=== PATIENT | male | born 1985 | race American Indian/Alaskan Native ===

== ENCOUNTER 2019-04-12 08:49 | Emergency (ER) | payer SELFPAY ==
[2019-04-12 09:31] LABS: Basophils % (Auto) 0.4 % (0.0-1.8); Hematocrit 44.5 % (35.5-45.6); Hemoglobin 15.1 gm/dl (11.8-15.2); Lymphocytes # (Auto) 1.6 K/mm3 (1.2-5.4); Mean Corpuscular HGB Conc 34 % (32-34); Mean Corpuscular Volume 93 fl (84-94); Monocytes # (Auto) 0.3 K/mm3 (0.0-0.8); Monocytes % (Auto) 3.8 % (0.0-7.3); Platelet Count 438 K/mm3 (140-440); Red Blood Count 4.81 M/mm3 (3.65-5.03); Red Cell Distribution Width 13.1 % (13.2-15.2)
[2019-04-12] MEDS ORDERED: FAMOTIDINE 20 MG/2 ML INJ IV ONE (09:31)
[2019-04-12] MEDS ORDERED: SODIUM CHLORIDE 0.9% 1000 ML 1,000 ML IV ONE (09:31)
[2019-04-12] MEDS ORDERED: ONDANSETRON 4 MG/2 ML INJ IV ONE (09:31)
[2019-04-12] MEDS ORDERED: DICYCLOMINE 20 MG/2 ML INJ IM ONE (09:31)
[2019-04-12 09:53] LABS: Alanine Aminotransferase 39 units/L (7-56); Albumin 4.7 g/dL (3.9-5); BUN/Creatinine Ratio 11; Blood Urea Nitrogen 9 mg/dL (9-20); Calcium 9.4 mg/dL (8.4-10.2); Hemolysis Index 11
--- NOTE | 2019-04-12 11:32 | Cat Scan Report ---
CT ABDOMEN AND PELVIS WITH CONTRAST HISTORY: Nausea, vomiting, abdominal pain. Recent cholecystectomy. COMPARISON: None TECHNIQUE: Routine abdominal and pelvic CT exam performed with IV contrast. The patient received 100 mL of IV Omnipaque 300. All CT scans at this location are performed using CT dose reduction for ALARA by means of automated exposure control. FINDINGS: CT ABDOMEN: Lung Bases: No significant abnormality. Liver: No significant abnormality. Biliary: Gallbladder is surgically absent. There is no fluid collection in the gallbladder fossa. Spleen: No significant abnormality. Unenlarged. Pancreas: No significant abnormality. Adrenals: No significant abnormality. Kidneys: No significant abnormality. Lymphatics: No lymphadenopathy. Vasculature: No significant abnormality. Bowel/Peritoneum: No significant abnormality. No free air. No free fluid. CT PELVIC: : No significant abnormality. Lymphatics: No lymphadenopathy. Osseous Structures: No aggressive appearing osseous lesions. Additional Findings: None IMPRESSION: 1. Post surgical changes from cholecystectomy without fluid collection in the gallbladder fossa or si gnificant ascites. A low-grade bile leak would be better detected with a nuclear medicine hepatobilia ry scan if necessary. Signer Name: Juan Adames MD Signed: 04/12/2019 11:28 AM Workstation Name: [id number]
[2019-04-12] MEDS ORDERED: METOCLOPRAMIDE 10 MG/2 ML INJ IV ONE (11:58)
[2019-04-12 13:28] VITALS: BP 97/45
--- NOTE | 2019-04-12 13:32 | Emergency Department Report ---
ED N/V/D HPI - General Chief complaint: Nausea/Vomiting/Diarrhea Stated complaint: VOMIT BLOOD Time Seen by Provider: 04/12/19 09:26 Source: patient Mode of arrival: Ambulatory Limitations: No Limitations - History of Present Illness Initial comments: Patient is a 33-year-old -[place] male who is complaining of some epigastric discomfort and nausea vomiting for the past 3 days. Patient states he is to have a couple of chunks of what he calls bright red blood as well. Patient's had his gallbladder removed several months ago states the pain is different from his gallbladder pain however he's been unable to stop vomiting. Denies diarrhea fevers or chills. Patient states he was seen at [facility] and was given Phenergan which is not helping. Patient states last have been drawn but deftly no imaging studies. - Related Data Previous Rx's Medication Instructions Recorded Last Taken Type Metoclopramide [Reglan] 10 mg PO TID PRN #12 tab 04/12/19 Unknown Rx Allergies Allergy/AdvReac Type Severity Reaction Status Date / Time No Known Allergies Allergy Unverified 04/12/19 08:52 ED Review of Systems ROS: Stated complaint: VOMIT BLOOD Other details as noted in HPI Comment: All other systems reviewed and negative ED Past Medical Hx - Past Medical History Previous Medical History?: No - Surgical History Hx Cholecystectomy: Yes - Social History Smoking Status: Never Smoker Substance Use Type: Alcohol, Marijuana - Medications Home Medications: Home Medications Medication Instructions Recorded Confirmed Last Taken Type Metoclopramide [Reglan] 10 mg PO TID PRN #12 tab 04/12/19 Unknown Rx ED Physical Exam - General Limitations: No Limitations General appearance: alert, in distress - Head Head exam: Present: atraumatic, normocephalic - Eye Eye exam: Present: normal appearance - ENT ENT exam: Present: mucous membranes moist - Neck Neck exam: Present: normal inspection - Respiratory Respiratory exam: Present: normal lung sounds bilaterally. Absent: respiratory distress, wheezes, rales - Cardiovascular Cardiovascular Exam: Present: regular rate, normal rhythm, normal heart sounds. Absent: systolic murmur, diastolic murmur, rubs, gallop - GI/Abdominal GI/Abdominal exam: Present: soft, normal bowel sounds. Absent: distended, tenderness, guarding - Rectal Rectal exam: Present: deferred - Extremities Exam Extremities exam: Present: normal inspection - Back Exam Back exam: Present: normal inspection - Neurological Exam Neurological exam: Present: alert, oriented X3 - Psychiatric Psychiatric exam: Present: normal affect, normal mood - Skin Skin exam: Present: warm, dry, intact, normal color. Absent: rash ED Course Vital Signs 04/12/19 04/12/19 08:55 09:07 Temperature 97.8 F Pulse Rate 64 Respiratory 20 18 Rate Blood Pressure 134/79 O2 Sat by Pulse 100 Oximetry ED Medical Decision Making - Lab Data Result diagrams: 04/12/19 09:03 04/12/19 09:03 Labs 04/12/19 04/12/19 04/12/19 09:03 09:03 09:33 WBC 7.0 RBC 4.81 Hgb 15.1 Hct 44.5 MCV 93 MCH 31 MCHC 34 RDW 13.1 L Plt Count 438 Lymph % (Auto) 23.0 [place] % (Auto) 3.8 Eos % (Auto) 0.0 Baso % (Auto) 0.4 Lymph # 1.6 [place] # 0.3 Eos # 0.0 Baso # 0.0 Seg Neutrophils % 72.8 H Seg Neutrophils # 5.1 Sodium 141 Potassium 3.5 L Chloride 97.9 L Carbon Dioxide 28 Anion Gap 19 BUN 9 Creatinine 0.8 Estimated GFR > 60 BUN/Creatinine Ratio 11 Glucose 121 H Calcium 9.4 Total Bilirubin 0.60 AST 28 ALT 39 Alkaline Phosphatase 94 Total Protein 7.6 Albumin 4.7 Albumin/Globulin Ratio 1.6 Lipase 57 - Medical Decision Making Patient is a 33-year-old -[place] male who said nausea vomiting for the past 3 days. Patient did recently have surgery and obstruction needs to be rul ed out. CT was done to rule out obstruction and inflammatory changes post surgery. CT was within normal limits. Patient was hydrated given antiemetics the patient eventually stated that he was feeling better and his nausea was improved. Patient did have good results with Reglan and regular will be given as an outpatient. Critical care attestation.: If time is entered above; I have spent that time in minutes in the direct care of this critically ill patient, excluding procedure time. ED Disposition Clinical Impression: Gastritis Disposition: DC-01 TO HOME OR SELFCARE Is pt being admited?: No Does the pt Need Aspirin: No Condition: Stable Instructions: Acute Nausea and Vomiting (ED) Referrals: PRIMARY CARE, [Primary Care Provider] - 3-5 Days Time of Disposition: 13:32
== END 2019-04-12 14:16 | disposition home or self-care (01) ==
LOC: ED 08:49
DX: K29.70 Gastritis, unspecified, without bleeding (principal); F12.10 Cannabis abuse, uncomplicated; Z90.49 Acquired absence of other specified parts of digestive tract
CPT/HCPCS: 36415; 74177; 80053; 83690; 85025; 96361; 96372; 96374; 96375; 99284; J0500; J2405; J2765; J7030; Q9967

== ENCOUNTER 2019-04-16 06:45 | Emergency (ER) | payer OTHER ==
[2019-04-16 06:52] VITALS: BP 126/91
[2019-04-16] MEDS ORDERED: LACTATED RINGERS 1,000 ML IV ONE (08:01)
[2019-04-16] MEDS ORDERED: ONDANSETRON 4 MG/2 ML INJ IV ONE (08:01)
--- NOTE | 2019-04-16 08:05 | Emergency Department Report ---
ED N/V/D HPI - General Chief complaint: Nausea/Vomiting/Diarrhea Stated complaint: VOMITING BLOOD Time Seen by Provider: 04/16/19 08:00 Source: patient Mode of arrival: Ambulatory Limitations: No Limitations - History of Present Illness Initial comments: n/v ongoing x 3 days seen 2 days ago for vomiting blood, but no further blood now no abd pain and no diarrhea no fever no UTI sx complaint: nausea, vomiting -: Gradual, days(s) (3) Description of Vomiting: food contents, bilious Associated Abdominal Pain: No Radiation: none Severity: moderate Pain Scale: 0 Consistency: constant Improves with: none Worsens with: none Associated Symptoms: denies other symptoms, nausea/vomiting - Related Data Previous Rx's Medication Instructions Recorded Last Taken Type Metoclopramide [Reglan] 10 mg PO TID PRN #12 tab 04/12/19 Unknown Rx Promethazine [Phenergan] 25 mg PO Q6HR PRN #12 tab 04/16/19 Unknown Rx Allergies Allergy/AdvReac Type Severity Reaction Status Date / Time No Known Allergies Allergy Unverified 04/12/19 08:52 ED Review of Systems ROS: Stated complaint: VOMITING BLOOD Other details as noted in HPI Comment: All other systems reviewed and negative Gastrointestinal: as per HPI ED Past Medical Hx - Past Medical History Previous Medical History?: No - Surgical History Past Surgical History?: Yes Hx Cholecystectomy: Yes - Social History Smoking Status: Current Every Day Smoker Substance Use Type: Marijuana - Medications Home Medications: Home Medications Medication Instructions Recorded Confirmed Last Taken Type Metoclopramide [Reglan] 10 mg PO TID PRN #12 tab 04/12/19 Unknown Rx Promethazine [Phenergan] 25 mg PO Q6HR PRN #12 tab 04/16/19 Unknown Rx ED Physical Exam - General Limitations: No Limitations General appearance: alert, in no apparent distress - Head Head exam: Present: atraumatic, normocephalic - Eye Eye exam: Present: normal appearance - ENT ENT exam: Present: mucous membranes moist - Neck Neck exam: Present: normal inspection - Respiratory Respiratory exam: Present: normal lung sounds bilaterally. Absent: respiratory distress - Cardiovascular Cardiovascular Exam: Present: normal rhythm, tachycardia. Absent: systolic murmur, diastolic murmur, rubs, gallop - GI/Abdominal GI/Abdominal exam: Present: soft, normal bowel sounds. Absent: distended, tenderness, guarding, rebound - Rectal Rectal exam: Present: deferred - Extremities Exam Extremities exam: Present: normal inspection - Back Exam Back exam: Present: normal inspection - Neurological Exam Neurological exam: Present: alert, oriented X3 - Psychiatric Psychiatric exam: Present: normal affect, normal mood - Skin Skin exam: Present: warm, dry, intact, normal color. Absent: rash ED Course Vital Signs 04/16/19 06:48 Temperature 98.6 F Pulse Rate 110 H Respiratory 20 Rate Blood Pressure 126/91 O2 Sat by Pulse 97 Oximetry ED Medical Decision Making - Lab Data Result diagrams: 04/16/19 Unknown 04/16/19 Unknown - Medical Decision Making ongoing n/v no abd pain or tenderness on exam mildly tachy labs overall stable pt feels much better abd remains soft he is tolerating PO and asking to go home advise PCP fu RTER if worse - Differential Diagnosis gastritis, dehydration, cannabinoid hyperemesis Critical care attestation.: If time is entered above; I have spent that time in minutes in the direct care of this critically ill patient, excluding procedure time. ED Disposition Clinical Impression: Gastritis Qualifiers: Gastritis type: unspecified gastritis Chronicity: acute Gastritis bleeding: without bleeding Qualified Code(s): K29.00 - Acute gastritis without bleeding Disposition: DC-01 TO HOME OR SELFCARE Is pt being admited?: No Condition: Good Instructions: Gastritis (ED) Prescriptions: Promethazine [Phenergan] 25 mg PO Q6HR PRN #12 tab PRN Reason: Nausea Referrals: PRIMARY MD REGINA [Primary Care Provider] - 3-5 Days NORMA STEIN MD [Staff Physician] - 3-5 Days Time of Disposition: 10:06
[2019-04-16 09:02] LABS: Basophils % (Auto) 0.4 % (0.0-1.8); Eosinophils % (Auto) 0.2 % (0.0-4.3); Hematocrit 48.1 % (35.5-45.6); Hemoglobin 16.7 gm/dl (11.8-15.2); Lymphocytes # (Auto) 2.3 K/mm3 (1.2-5.4); Lymphocytes % (Auto) 20.5 % (13.4-35.0); Mean Corpuscular HGB Conc 35 % (32-34); Mean Corpuscular Volume 92 fl (84-94); Monocytes # (Auto) 1.3 K/mm3 (0.0-0.8); Monocytes % (Auto) 11.3 % (0.0-7.3); Platelet Count 477 K/mm3 (140-440); Red Blood Count 5.24 M/mm3 (3.65-5.03)
[2019-04-16 09:04] LABS: Alanine Aminotransferase 32 units/L (7-56); Albumin 5.2 g/dL (3.9-5); BUN/Creatinine Ratio 12; Blood Urea Nitrogen 12 mg/dL (9-20); Hemolysis Index 9
== END 2019-04-16 10:37 | disposition home or self-care (01) ==
LOC: ED 06:45
DX: K29.70 Gastritis, unspecified, without bleeding (principal); F17.200 Nicotine dependence, unspecified, uncomplicated; F12.10 Cannabis abuse, uncomplicated; Z90.49 Acquired absence of other specified parts of digestive tract
CPT/HCPCS: 36415; 80053; 83690; 85025; 96361; 96374; 99283; J2405; J7120